=== PATIENT | male | born 1975 | race Two or more races ===

== ENCOUNTER 2018-10-10 16:18 | Emergency (ER) | payer OTHER ==
[2018-10-10] MEDS ORDERED: TDAP ADULT 0.5 ML INJ (BOOSTRIX) IM ONE (17:02)
--- NOTE | 2018-10-10 17:09 | EDPHY ---
H & P Stated Complaint: PT. 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 Review of systems As per HPI General no fever no chills no weakness HEENT no eye pain no eye discharge. No eye redness, no sore throat Respiratory no cough, no shortness of breath Cardiac no chest pain, no peripheral edema GI no abdominal pain, no diarrhea, no constipation, no nausea, no vomiting no flank pain, no hematuria, no dysuria Musculoskeletal no myalgias, no joint pain Heme no easy bruising, no easy bleeding Endo no polyuria, no polydipsia Skin no rashes, no pruritus Neuro no syncope, no dizziness, no headaches Psych is no suicidal ideation, no homicidal ideation Source: Patient Exam Limitations: No limitations - Personal History Current Tetanus Diphtheria and Acellular Pertussis (TDAP): No - Medical/Surgical History Hx Asthma: No Hx Chronic Respiratory Disease: No Hx Diabetes: No Hx Cardiac Disease: No Hx Renal Disease: No Hx Cirrhosis: No Hx Alcoholism: No Hx HIV/AIDS: No Hx Splenectomy or Spleen Trauma: No Other PMH: Med hx-none. Surg-left hand - Family History Significant Family History: No pertinent family hx - Social History Smoking Status: Unknown if ever smoked Alcohol Use: None Drug Use: None - Physical Exam Exam: 43-year-old male Alert and oriented in no acute distress nontoxic appearance, afebrile Atraumatic normocephalic Neck no JVD Lungs clear to auscultation, no respiratory distress Heart regular rate and rhythm Extremities no cyanosis clubbing edema Left hand-left middle finger distal phalanx with near amputation of distal aspect of distal phalanx with nail still intact however raised with lacerations on both medial and lateral aspects of the nail, no foreign bodies Constitutional: Initial Vital Signs Temperature (C) 37.6 C 10/10/18 16:27 Heart Rate 75 10/10/18 16:27 Respiratory Rate 16 10/10/18 16:27 Blood Pressure 168/124 H 10/10/18 16:27 O2 Sat (%) 95 10/10/18 16:27 O2 Delivery Mode Room Air Allergies/Adverse Reactions: No Known Allergies Allergy (Verified 10/10/18 16:26) Home Medications: Medication Instructions Recorded Cephalexin 500 mg PO TID #21 tablet 10/10/18 Medical Decision Making - Diagnostics Imaging Results: Imaging Impressions Finger X-Ray 10/10/18 16:45 Impression: 1. Traumatic amputation distal tuft left third finger. 2. Probable epidermal inclusion cyst distal phalanx left fifth finger. 3. Posttraumatic deformity distal phalanx left fourth finger. Procedures: Procedure note-laceration Digital block follow by a metacarpal block with bupivocaine and lidocaine combined without epi. The wound was irrigated with copious amounts of saline. Lidocaine 1% was used for local anesthetic. 11 simple interrupted sutures were placed. 4-0 Prolene was used. Patient tolerated procedure well. ED Course/Re-evaluation: Pt seen and evaluated for finger injury X-ray obtained-positive distal phalanx fracture Patient with distal phalanx fracture with overlying laceration and nail bed laceration Given 1 g Ancef IV piggyback Given Toradol 30 mg IV push Impression Open fracture, distal phalanx left middle finger Plan Sutured repair Return for suture removal in 12 days Keep clean and dry Cephalexin 500 mg three times daily x7 days prophylaxis for open fracture Differential Diagnosis: Differential diagnosis considered but not limited to: Finger laceration, distal open fracture with overlying laceration, nail bed laceration, crush injury - Data Points Medications Given: Discontinued Medications Diphtheria/Tetanus/Acell Pertussis (Boostrix) 0.5 ml IM .ONCE ONE Stop: 10/10/18 17:03 Last Admin: 10/10/18 17:31 Dose: 0.5 ml Cefazolin Sodium/Dextrose (Ancef 1 Gm (Premix)) 50 mls @ 200 mls/hr IV EDNOW ONE PRN Reason: Protocol Stop: 10/10/18 17:57 Last Admin: 10/10/18 18:09 Dose: 50 mls Ketorolac Tromethamine (Toradol) 30 mg IVP EDNOW ONE Stop: 10/10/18 18:02 Last Admin: 10/10/18 18:04 Dose: 30 mg Departure - Departure Disposition: Home, Routine, Self-Care Clinical Impression: Nailbed laceration, finger, Fracture of distal phalanx of finger of left hand Condition: Good Instructions: Cephalexin (By mouth), Finger Fracture (ED), Finger Laceration ( ED) Additional Instructions: Return in 12 days for suture removal Return earlier if you have concern for signs of infection. Referrals: NONE *PRIMARY CARE P,. [Primary Care Provider] - As per Instructions Ok Jaime MD [Medical Doctor] - As per Instructions Prescriptions: Cephalexin 500 mg PO TID #21 tablet
[2018-10-10] MEDS ORDERED: ceFAZolin 1 GM VIAL ONE (17:47)
[2018-10-10] MEDS ORDERED: KETOROLAC 30 MG/1 ML SDV IVP ONE (18:01)
[2018-10-10 20:15] VITALS: BP 162/100
== END 2018-10-10 20:12 | disposition home or self-care (01) ==
LOC: CED 16:18
PROC: 0HQGXZZ Repair Left Hand Skin, External Approach (ICD-10-PCS; principal; 2018-10-10)
DX: S62.623B Displaced fracture of middle phalanx of left middle finger, initial encounter for open fracture (principal); S61.313A Laceration without foreign body of left middle finger with damage to nail, initial encounter; W23.0XXA Caught, crushed, jammed, or pinched between moving objects, initial encounter; Y92.89 Other specified places as the place of occurrence of the external cause; Y99.0 Civilian activity done for income or pay; Y93.89 Activity, other specified
CPT/HCPCS: 73140-PO; 90471-ER; 96374-ER; 96375-ER; 99284-ER; J0690; J1885